=== PATIENT | female | born 1985 | race African-American/Black ===

== ENCOUNTER 2021-03-14 01:36 | Emergency (ER) | payer MEDICARE, MEDICAID ==
[2021-03-14] MEDS ORDERED: Ketorolac Tromethamine 15 MG/ML VIAL ONE (02:20)
[2021-03-14 02:41] LABS: #Monocytes 0.3 10x3/uL (0.0-1.1); #Neutrophils 3.6 10x3/uL (1.5-8.4); %Basophils 0.5 % (0.0-2.0); %Eosinophils 0.5 % (0.0-6.0); %Lymphocytes 40.8 % (18.0-47.0); %Monocytes 4.2 % (0.0-10.0); %Neutrophils 53.7 % (40.0-75.0); Hemoglobin 11.4 g/dL (12.0-15.5); Mean Corpuscular HGB CONC 32.8 g/dL (32.0-36.0); Mean Corpuscular Hemoglobin 29.9 pg (27.0-33.0); Mean Corpuscular Volume 91.3 fl (81.6-98.3); Mean Platelet Volume 9.4 fl (7.4-10.4); Platelet Count 326 10x3/uL (150-450); RBC Distribution Width 12.8 % (11.5-14.5); Red Blood Cell (RBC) Count 3.81 10x6/uL (3.90-5.03); White Blood Cell (WBC) Count 6.7 10x3/uL (3.5-10.5)
[2021-03-14 02:51] LABS: BHCG - Serum Negative (NEGATIVE); Pregs Control Background? CLEAR/WHITE (CLR/WHITE); Pregs Control Bar Appear? YES (CONTROL BAR)
[2021-03-14 02:57] LABS: ALT (SGPT) 16 U/L (8-55); AST (SGOT) 19 U/L (5-34); Albumin 4.7 g/dL (3.5-5.0); Alkaline Phosphatase 42 U/L (40-110); Anion Gap 13 mmol/L (10-20); BUN (Urea Nitrogen) 14 mg/dL (7.0-18.7); Bilirubin, Total 0.5 mg/dL (0.2-1.2); Calc. Creatinine Clearance 0 mL/min (70-130); Calcium 9.3 mg/dL (7.8-10.44); Carbon Dioxide 26 mmol/L (22-29); Chloride 103 mmol/L (98-107); Globulin 3.2 g/dL (2.4-3.5); Glucose 111 mg/dL (70-105); Lipase 19 U/L (8-78); Potassium 3.2 mmol/L (3.5-5.1); Protein, Total 7.9 g/dL (6.0-8.3); Sodium 139 mmol/L (136-145)
[2021-03-14] MEDS ORDERED: Morphine 4 MG/ML VIAL ONE (03:08)
== END 2021-03-14 03:40 | disposition home or self-care (01) ==
LOC: CSHERS 01:36
DX: R07.81 Pleurodynia (principal); R10.84 Generalized abdominal pain; M32.9 Systemic lupus erythematosus, unspecified; W17.89XA Other fall from one level to another, initial encounter
CPT/HCPCS: 71045; 74177; 80053; 83690; 84703; 85025; 96374; 96375; J1885; J2270

== ENCOUNTER 2022-03-20 07:52 | Outpatient (CLI) | payer MEDICARE, OTHER ==
[2022-03-20 16:07] LABS: SARS-CoV-2 PCR by NAA Not Detected (NotDetected)
== END 2022-03-20 07:53 | disposition home or self-care (01) ==
LOC: CSHLAB 07:52
PROVIDERS: ATTEND Student in an Organized Health Care Education/Training Program
DX: Z20.822 Contact with and (suspected) exposure to COVID-19 (principal)
CPT/HCPCS: U0003; U0005

== ENCOUNTER 2022-03-21 05:23 | Inpatient (IN) | payer MEDICARE, MEDICAID ==
[2022-03-21] MEDS ORDERED: Bicitra 30 ML UDCUP PO PRN (05:46)
[2022-03-21] MEDS ORDERED: ceFAZolin 2 GM/Dextrose 50 ML 2 GM in Premix Bag 1 BAG IVPB SCH (05:46)
[2022-03-21] MEDS ORDERED: Ondansetron PF 4 MG/2 ML Vial IVP PRN ×3 (05:46→10:58)
[2022-03-21] MEDS ORDERED: Famotidine/PF 20 mg/2ml Vial SLOW IVP PRN (05:46)
[2022-03-21] MEDS ORDERED: hydrALAZINE 20 MG/ML VIAL SLOW IVP PRN ×2 (05:46→10:58)
[2022-03-21] MEDS ORDERED: Promethazine HCl 25 MG/ML VIAL IM PRN ×3 (05:46→10:58)
[2022-03-21 05:47] VITALS: BMI 33.3
[2022-03-21] MEDS: Lactated Ringer's 1,000 ML IV SCH ×2 (06:05→07:21)
[2022-03-21 06:20] LABS: Hemoglobin 9.3 g/dL (12.0-15.5); Mean Corpuscular HGB CONC 33.5 g/dL (32.0-36.0); Mean Corpuscular Hemoglobin 30.3 pg (27.0-33.0); Mean Corpuscular Volume 90.6 fl (81.6-98.3); Mean Platelet Volume 9.7 fl (7.4-10.4); Platelet Count 283 10x3/uL (150-450); RBC Distribution Width 13.5 % (11.5-14.5); Red Blood Cell (RBC) Count 3.07 10x6/uL (3.90-5.03)
[2022-03-21 07:00] LABS: Hep B Surf Ag Non-Reactive S/CO (NonReactive)
[2022-03-21 07:01] LABS: Syphilis Antibody Nonreactive (Nonreactive); Syphilis Antibody Index 0.07 S/CO (<1.00 Non-Reactive)
[2022-03-21 07:03] LABS: HBSAg Index 0.14 S/CO (0-0.99)
[2022-03-21] MEDS ORDERED: Morphine PF 10 MG/10 ML VIAL ONE (07:08)
[2022-03-21] MEDS ORDERED: ePHEDrine Sulfate 50 MG/10 ML VIAL ONE (07:08)
[2022-03-21] MEDS ORDERED: Oxytocin 10 UNITS/ML VIAL ONE (07:09)
[2022-03-21] MEDS ORDERED: Phenylephrine 40 MG/NS 250 ML 250 ML ONE (07:09)
[2022-03-21] MEDS ORDERED: Ketorolac Tromethamine 30 MG/ML VIAL ONE (07:09)
[2022-03-21] MEDS ORDERED: Dexamethasone 4 mg/ml Vial ONE (07:09)
[2022-03-21] MEDS ORDERED: Ondansetron PF 4 MG/2 ML Vial ONE (07:09)
[2022-03-21] MEDS ORDERED: Glycopyrrolate 0.2 MG/ML 5 ML SYRINGE ONE (07:09)
[2022-03-21] MEDS ORDERED: PHENYLEPHRINE-NS 100 MCG/ML 10 ML SYRINGE ONE (07:10)
[2022-03-21] MEDS ORDERED: Naloxone HCl 0.4 mg/ml Vial IV PRN (07:25)
[2022-03-21] MEDS ORDERED: Moisturizing Cream (Eucerin) 113 GM JAR TOP PRN (07:25)
[2022-03-21] MEDS ORDERED: Ondansetron HCl/PF 4 MG/2 ML Vial IVP PRN (07:25)
[2022-03-21] MEDS ORDERED: Promethazine HCl 25 MG SUPP PR PRN (07:25)
[2022-03-21] MEDS ORDERED: diphenhydrAMINE 50 MG/ML VIAL IVP PRN (07:25)
[2022-03-21] MEDS ORDERED: Fentanyl 100 MCG/2 ML VIAL SLOW IVP PRN (07:25)
[2022-03-21] MEDS ORDERED: Ketorolac Tromethamine 30 MG/ML VIAL IVP PRN (07:25)
[2022-03-21] MEDS ORDERED: Meperidine HCl/PF 25 MG/ML VIAL SLOW IVP PRN (07:25)
[2022-03-21] MEDS ORDERED: Naloxone HCl 0.4 mg/ml Vial IVP PRN ×2 (07:25)
[2022-03-21] MEDS ORDERED: Communication Order-Pharmacy FS SCH (07:30)
[2022-03-21] MEDS ORDERED: Ketorolac Tromethamine 30 MG/ML VIAL IVP SCH (07:30)
[2022-03-21] MEDS ORDERED: Midazolam HCl 2 mg/2 ml Vial ONE (08:21)
[2022-03-21] MEDS ORDERED: Boostrix 0.5 ML (Tdap) VIAL IM ONE (10:58)
[2022-03-21] MEDS ORDERED: diphenhydrAMINE 25 MG CAP PO PRN (10:58)
[2022-03-21] MEDS ORDERED: Acetaminophen 325 MG TAB PO PRN (10:58)
[2022-03-21] MEDS ORDERED: Simethicone Chewable 80 MG TAB PO PRN (10:58)
[2022-03-21] MEDS ORDERED: Bisacodyl 10 MG SUPP PR PRN (10:58)
[2022-03-21] MEDS ORDERED: Lanolin Ointment 7 GM TUBE TOP PRN (10:58)
[2022-03-21] MEDS ORDERED: Prenatal Vitamin 1 TAB PO SCH (11:45)
[2022-03-21] MEDS ORDERED: Docusate 100 MG CAP PO SCH (11:45)
[2022-03-21] MEDS ORDERED: Ferrous Sulfate 325 MG TAB PO SCH (11:45)
[2022-03-21] MEDS ORDERED: Zolpidem Tartrate 5 MG TAB PO PRN (19:30)
[2022-03-21] MEDS ORDERED: HYDROcodone/Acetaminophen 5/325 mg Tablet PO PRN (19:30)
[2022-03-22] MEDS: HYDROcodone/Acetaminophen 5/325 mg Tablet PO PRN ×4 (02:20→18:53)
[2022-03-22] MEDS: Docusate 100 MG CAP PO SCH ×3 (07:57→20:55)
[2022-03-22] MEDS: Ferrous Sulfate 325 MG TAB PO SCH ×3 (07:57→20:55)
[2022-03-22 08:23] LABS: Hemoglobin 8.8 g/dL (12.0-15.5); Mean Corpuscular HGB CONC 32.1 g/dL (32.0-36.0); Mean Corpuscular Volume 93.5 fl (81.6-98.3); Mean Platelet Volume 9.7 fl (7.4-10.4); Platelet Count 256 10x3/uL (150-450); RBC Distribution Width 13.2 % (11.5-14.5); Red Blood Cell (RBC) Count 2.93 10x6/uL (3.90-5.03); White Blood Cell (WBC) Count 10.1 10x3/uL (3.5-10.5)
[2022-03-22] MEDS: Prenatal Vitamin 1 TAB PO SCH (09:12)
[2022-03-22] MEDS: Ibuprofen 800 MG TAB PO SCH ×2 (14:11→20:55)
[2022-03-23] MEDS: HYDROcodone/Acetaminophen 5/325 mg Tablet PO PRN ×3 (00:35→12:46)
[2022-03-23] MEDS: Ibuprofen 800 MG TAB PO SCH (06:05)
[2022-03-23] MEDS: Ferrous Sulfate 325 MG TAB PO SCH (08:37)
[2022-03-23] MEDS: Docusate 100 MG CAP PO SCH (08:37)
[2022-03-23] MEDS: Prenatal Vitamin 1 TAB PO SCH (08:37)
[2022-03-23 09:28] VITALS: BP 117/54; TEMP 98.4
== END 2022-03-23 14:00 | disposition home or self-care (01) | DRG 788 ==
LOC: CSHLD 05:23 → CSHPP 10:50
PROVIDERS: ADMIT Student in an Organized Health Care Education/Training Program; ATTEND Student in an Organized Health Care Education/Training Program
PROC: 10D00Z1 Extraction of Products of Conception, Low, Open Approach (ICD-10-PCS; principal; 2022-03-21)
PROC: 3E0234Z Introduction of Serum, Toxoid and Vaccine into Muscle, Percutaneous Approach (ICD-10-PCS; 2022-03-21)
DX: O34.211 Maternal care for low transverse scar from previous cesarean delivery (principal); H91.8X3 Other specified hearing loss, bilateral; Z3A.37 37 weeks gestation of pregnancy; Z37.0 Single live birth; O69.81X0 Labor and delivery complicated by cord around neck, without compression, not applicable or unspecified; Z67.41 Type O blood, Rh negative; O26.893 Other specified pregnancy related conditions, third trimester; O99.892 Other specified diseases and conditions complicating childbirth; Z88.8 Allergy status to other drugs, medicaments and biological substances; N73.6 Female pelvic peritoneal adhesions (postinfective); L91.0 Hypertrophic scar; O99.72 Diseases of the skin and subcutaneous tissue complicating childbirth
CPT/HCPCS: 36415; 51702; 85027; 85461; 86780; 86850; 86870; 86900; 86901; 86922; 87340; 90384; 96372; J0690; J1100; J1885; J2250; J2274; J2405; J2590; J7120; S0028

== ENCOUNTER 2023-10-20 12:00 | Inpatient (IN) | payer MEDICAID, MEDICARE ==
[2023-10-23 12:49] LABS: Hematocrit 34.3 % (34.9-44.5); Hemoglobin 11.6 g/dL (12.0-15.5); Platelet Count 238 10x3/uL (150-450)
[2023-10-23 13:14] LABS: Syphilis Antibody Nonreactive (Nonreactive); Syphilis Antibody Index 0.05 S/CO (<1.00 Non-Reactive)
[2023-10-23 13:15] LABS: HBSAg Index 0.19 S/CO (0-0.99); Hep B Surf Ag Non-Reactive S/CO (NonReactive)
[2023-10-24 05:46] VITALS: BMI 37.2
[2023-10-24] MEDS ORDERED: Ondansetron PF 4 MG/2 ML Vial IVP PRN ×3 (06:03→07:33)
[2023-10-24] MEDS ORDERED: Acetaminophen 500 MG TAB PO PRN (06:03)
[2023-10-24] MEDS ORDERED: Famotidine/PF 20 mg/2ml Vial SLOW IVP PRN (06:03)
[2023-10-24] MEDS ORDERED: hydrALAZINE 20 MG/ML VIAL SLOW IVP PRN ×2 (06:03→08:29)
[2023-10-24] MEDS ORDERED: Promethazine HCl 25 MG/ML VIAL IM PRN ×2 (06:03→07:33)
[2023-10-24] MEDS ORDERED: Bicitra 30 ML UDCUP PO PRN (06:03)
[2023-10-24] MEDS ORDERED: Oxytocin 30 units/NS 500 ML 500 ML IV SCH (06:15)
[2023-10-24] MEDS ORDERED: CEFAZOLIN 2 GM in Sodium Chloride 0.9% 100 ML IVPB SCH (06:15)
[2023-10-24] MEDS: Lactated Ringer's 1,000 ML IV SCH ×3 (06:52→20:18)
[2023-10-24] MEDS ORDERED: Misoprostol 200 MCG TAB ONE (06:55)
[2023-10-24] MEDS ORDERED: CEFAZOLIN 2 GM VIAL ONE (06:55)
[2023-10-24] MEDS ORDERED: Carboprost 250 MCG/ML AMP ONE (06:56)
[2023-10-24] MEDS ORDERED: Methylergonovine 0.2 MG/ML VIAL ONE (06:56)
[2023-10-24] MEDS ORDERED: Tranexamic Acid 1,000 MG/10 ML VIAL ONE (06:56)
[2023-10-24] MEDS ORDERED: Morphine PF 10 MG/10 ML VIAL ONE (07:13)
[2023-10-24] MEDS ORDERED: EPINEPHrine 1 MG/ML AMP ONE (07:19)
[2023-10-24] MEDS ORDERED: Dexamethasone 4 mg/ml Vial ONE (07:20)
[2023-10-24] MEDS ORDERED: Metoclopramide HCl 10 MG/2 ML VIAL ONE (07:20)
[2023-10-24] MEDS ORDERED: Oxytocin 10 UNITS/ML VIAL ONE ×2 (07:21→08:04)
[2023-10-24] MEDS ORDERED: Ketorolac Tromethamine 30 MG/ML VIAL ONE (07:21)
[2023-10-24] MEDS ORDERED: Phenylephrine 40 MG/NS 250 ML 250 ML ONE (07:21)
[2023-10-24] MEDS ORDERED: Naloxone HCl 0.4 mg/ml Vial IV PRN (07:33)
[2023-10-24] MEDS ORDERED: Moisturizing Cream (Eucerin) 113 GM JAR TOP PRN (07:33)
[2023-10-24] MEDS ORDERED: diphenhydrAMINE 50 MG/ML VIAL IVP PRN (07:33)
[2023-10-24] MEDS ORDERED: fentaNYL 50 mcg/mL 1 mL Vial SLOW IVP PRN (07:33)
[2023-10-24] MEDS ORDERED: Naloxone HCl 0.4 mg/ml Vial IVP PRN ×2 (07:33)
[2023-10-24] MEDS ORDERED: Meperidine HCl/PF 25 MG/ML VIAL SLOW IVP PRN (07:33)
[2023-10-24] MEDS ORDERED: Promethazine HCl 25 MG SUPP PR PRN (07:33)
[2023-10-24] MEDS ORDERED: Erythromycin Base 0.5% Oint 1 GM TUBE ONE (07:41)
[2023-10-24] MEDS ORDERED: Phytonadione Neonatal 1 MG/0.5 ML AMP ONE (07:41)
[2023-10-24] MEDS ORDERED: Hepatitis B Vaccine 10 MCG/0.5 ML SYR ONE (07:42)
[2023-10-24] MEDS ORDERED: NO NARCS FOR 12 HRS FS PRN (07:45)
[2023-10-24] MEDS ORDERED: Ondansetron PF 4 MG/2 ML Vial ONE (08:02)
[2023-10-24] MEDS ORDERED: Fioricet 325/50/40 mg Tablet PO PRN (08:29)
[2023-10-24] MEDS ORDERED: Boostrix 0.5 ML (Tdap) VIAL (>/=7 yrs of age) IM ONE (08:29)
[2023-10-24] MEDS ORDERED: Lanolin Ointment 7 GM TUBE TOP PRN (08:29)
[2023-10-24] MEDS: Docusate 100 MG CAP PO SCH (11:21)
[2023-10-24] MEDS: Ketorolac Tromethamine 30 MG/ML VIAL IVP PRN (14:31)
[2023-10-24] MEDS ORDERED: HYDROcodone/Acetaminophen 5/325 mg Tablet PO PRN (20:00)
[2023-10-24] MEDS: HYDROcodone/Acetaminophen 5/325 mg Tablet PO PRN (20:05)
[2023-10-25] MEDS: Docusate 100 MG CAP PO SCH ×4 (04:29→21:34)
[2023-10-25] MEDS: HYDROcodone/Acetaminophen 5/325 mg Tablet PO PRN ×5 (04:49→22:31)
[2023-10-25 06:11] LABS: Hematocrit 31.1 % (34.9-44.5); Hemoglobin 10.9 g/dL (12.0-15.5); Mean Corpuscular Hemoglobin 34.4 pg (27.0-33.0); Mean Corpuscular Volume 98.1 fl (81.6-98.3); Platelet Count 231 10x3/uL (150-450); RBC Distribution Width 12.6 % (11.5-14.5); Red Blood Cell (RBC) Count 3.17 10x6/uL (3.90-5.03)
[2023-10-25] MEDS: Lactated Ringer's 1,000 ML IV SCH ×3 (06:22→22:30)
[2023-10-25] MEDS: Ketorolac Tromethamine 30 MG/ML VIAL IVP PRN (08:45)
[2023-10-25] MEDS: Ibuprofen 800 MG TAB PO SCH ×2 (14:23→21:34)
[2023-10-26] MEDS: HYDROcodone/Acetaminophen 5/325 mg Tablet PO PRN ×3 (02:31→11:47)
[2023-10-26] MEDS: Ibuprofen 800 MG TAB PO SCH (05:04)
[2023-10-26 05:22] VITALS: TEMP 98.5
[2023-10-26] MEDS: Lactated Ringer's 1,000 ML IV SCH (07:07)
[2023-10-26] MEDS: Docusate 100 MG CAP PO SCH (07:45)
[2023-10-26 08:31] VITALS: BP 113/55
== END 2023-10-26 12:30 | disposition home or self-care (01) | DRG 788 ==
LOC: CSHLD 10-24 05:13 → CSHPP 10-24 10:50
PROVIDERS: ADMIT Student in an Organized Health Care Education/Training Program; ATTEND Student in an Organized Health Care Education/Training Program
PROC: 10D00Z1 Extraction of Products of Conception, Low, Open Approach (ICD-10-PCS; principal; 2023-10-24)
PROC: 3E033XZ Introduction of Vasopressor into Peripheral Vein, Percutaneous Approach (ICD-10-PCS; 2023-10-24)
DX: O34.211 Maternal care for low transverse scar from previous cesarean delivery (principal); Z3A.37 37 weeks gestation of pregnancy; Z37.0 Single live birth; Z88.8 Allergy status to other drugs, medicaments and biological substances
CPT/HCPCS: 51702; 85014; 85018; 85027; 85049; 86780; 86850; 86870; 86900; 86901; 87340; J0171; J1100; J1885; J2175; J2274; J2405; J2590; J2765; J7120; S0028